=== PATIENT | male | born 1980 | race Caucasian/White ===

== ENCOUNTER 2018-10-05 09:10 | Inpatient (IN) | payer OTHER ==
[~2018-10-05] VITALS: Ht 193 cm; Wt 86.4 kg
--- NOTE | ~2018-10-05 | EKG ---
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
[2018-10-05 10:50] VITALS: BP 128/80
--- NOTE | 2018-10-05 10:50 | NUR ---
Time: 1049 A 38 year old MALE admitted to under services of NIMA DELUNA DO. Pt. arrived via ambulatory from [place]. Chief complaint: OPIATE WITHDRAWAL. SWETHA MULLINS
--- NOTE | 2018-10-05 11:20 | NUR ---
ALBERT ON FLOOR TO SEE PATIENT, INFORMED THAT PATIENT TAKES NO PRESCRIPTIONS MEDS.
[2018-10-05 12:19] LABS: BASO # 0.1 10*3/uL (0.0-0.1); BASO % 0.7 % (0.0-1.0); EOS # 0.4 10*3/uL (0.0-0.4); EOS % 5.8 % (1.0-4.0); HEMATOCRIT 45.4 % (42.0-52.0); HEMOGLOBIN 15.1 g/dl (14.0-18.0); LYMPH # 2.6 10*3/uL (1.3-4.4); LYMPH % 36.9 % (27.0-41.0); MEAN CELL VOLUME 92.3 fl (80.0-94.0); MEAN CORPUSCULAR HGB 30.7 pg (27.0-31.0); MEAN CORPUSCULAR HGB CONC 33.3 g/dl (33.0-37.0); MEAN PLATELET VOLUME 9.8 fl (9.6-12.3); MONO # 0.6 10*3/uL (0.1-1.0); MONO % 8.5 % (3.0-9.0); NEUT # 3.4 10*3/uL (2.3-7.9); NEUT % 47.8 % (47.0-73.0); PLATELET COUNT AUTOMATED 188 10*3/uL (130-400); RED BLOOD COUNT 4.92 10*6/uL (4.50-5.90); RED CELL DISTRI WIDTH 11.7 % (0-14.5); WHITE BLOOD COUNT 7.1 10*3/uL (4.8-10.8)
--- NOTE | 2018-10-05 12:34 | NUR ---
PATIENT MEETS [facility], CINA=15. PATIENT IS INTERESTED IN FOLLOWING UP WITH SELF HELP MEETINGS AND OUTPATIENT COUNSELING WITH [facility]. [facility] WILL SCHEDULE THE PATIENT'S INITIAL APPOINTMENT. HILDA DAVILA MS MEN'S GARMENT FITTER
[2018-10-05 12:42] LABS: ALBUMIN 3.3 gm/dl (3.1-4.5); ALKALINE PHOSPHATASE 44 U/L (45-117); BUN 18 mg/dl (7-24); CHLORIDE 106 mmol/L (98-107); CREATININE 0.79 mg/dL (0.70-1.30); SGOT/AST 16 IU/L (3-35); SGPT/ALT 27 U/L (12-78); SODIUM 138 mmol/L (136-145); TOTAL PROTEIN 6.5 gm/dL (6.4-8.2)
[2018-10-05 12:44] LABS: INTERNATIONAL NORM RATIO 0.9 (2.0-3.5)
[2018-10-05 12:47] LABS: ETHYL ALCOHOL < 3.0 mg/dl (<3)
--- NOTE | 2018-10-05 13:20 | NUR ---
URINE SPECIMEN SENT TO LAB
[2018-10-05 13:27] LABS: BILIRUBIN NEGATIVE (NEGATIVE); BLOOD NEGATIVE (NEGATIVE); CLARITY CLEAR (CLEAR); COLOR YELLOW (YELLOW); GLUCOSE NEGATIVE (NEGATIVE); KETONE NEGATIVE (NEGATIVE); LEUKO ESTERASE NEGATIVE (NEGATIVE); NITRITE NEGATIVE (NEGATIVE); UROBILINOGEN 0.2 E.U./dl (0.2-1.0)
[2018-10-05 13:35] LABS: EPITHELIAL CELLS 0-2; RBC 0-2 rbc/hpf (0-2)
[2018-10-05 13:39] LABS: URINE AMPHETAMINES > 1000 (1000ng/ml); URINE BARBITURATES < 200 (200ng/ml); URINE BENZODIAZEPINES < 200 (200ng/ml); URINE CANNABINOIDS (THC) > 50 (50ng/ml); URINE COCAINE < 300 (300ng/ml); URINE METHADONE < 300 (300ng/ml); URINE OPIATES > 300 (300ng/ml)
[2018-10-05 13:40] LABS: URINE PHENCYCLIDINE < 25 (25ng/ml)
--- NOTE | 2018-10-05 14:29 | NUR ---
PATIENT MEDICATED FOR WITH DRAWAL SYMPTOM OF ABDOMINAL DISCOMFORT, NAUSEA, BAODY ACHES, AND ANXIETY, SEE EMAR. WILL MONITOR
[2018-10-05 16:00] VITALS: BP 118/62
--- NOTE | 2018-10-05 19:26 | NUR ---
PATIENT MEDICATED WITH MOTRIN FOR COMPLAINTS OF ABDOMINAL AND HEAD PAIN. WILL CONTINUE TO MONITOR. CALL LIGHT IN REACH.
--- NOTE | 2018-10-05 19:55 | NUR ---
MEDICATED WITH VISTARIL FOR ANXIETY AND ZOFRAN FOR ABDOMINAL UPSET. WILL CONTINUE TO MONITOR.
[2018-10-05 20:00] VITALS: BP 116/62
[2018-10-06] VITALS: BP 111/62
--- NOTE | 2018-10-06 07:00 | NUR ---
PT SLEEPING. RESPS REG/EASY WITH NO DISTRESS. BEDSIDE REPORT RECEIVED FROM JUDY LE. BED LOW
[2018-10-06 08:00] VITALS: BP 90/58
--- NOTE | 2018-10-06 10:30 | NUR ---
PT AWAKE. ROUTINE MEDICATIONS WELL TOLERATED. NO PT QUESTIONS/CONCERNS AT THIS TIME. BED LOW. CALL MYERS IN REACH
[2018-10-06 12:00] VITALS: BP 98/50
[2018-10-06 16:00] VITALS: BP 114/68
--- NOTE | 2018-10-06 16:03 | NUR ---
PATIENT REPORTED THAT HE HAS A PRESCHEDULED APPOINTMENT WITH [facility] FOR HIS AFTERCARE PLAN. [facility] STAFF WILL FOLLOW UP WITH PATIENT CONCERNING HIS AFTERCARE PLAN. LONNIE PECK B.A. NEWS AGENT
--- NOTE | 2018-10-06 19:10 | NUR ---
Patient displaying withdrawal symptoms, including: irritability, anxiousness, restlessness and agitation. PRN medications provided, SEE EMAR. Will continue to monitor medication effectiveness.
[2018-10-06 20:00] VITALS: BP 115/70
--- NOTE | 2018-10-06 20:12 | NUR ---
24 HR chart check completed.
--- NOTE | 2018-10-06 20:30 | NUR ---
Patient resting. Responding to scheduled medications with fewer complaints of pain and anxiety.
--- NOTE | 2018-10-06 21:30 | NUR ---
Patient displaying withdrawal symptoms, including: irritability, anxiousness, restlessness and agitation. Scheduled/PRN medications provided, SEE EMAR. Will continue to monitor medication effectiveness.
--- NOTE | 2018-10-06 23:00 | NUR ---
Patient resting. Responding to scheduled medications with fewer complaints of pain and anxiety.
[2018-10-07] VITALS: BP 112/63
--- NOTE | 2018-10-07 00:20 | NUR ---
SLEEPING WITH NO ACUTE DISTRESS NOTED. RESPIRATIONS EASY. VSS. CALL LIGHT WITHIN REACH
--- NOTE | 2018-10-07 05:20 | NUR ---
AWAKENED FOR AM SUBUTEX. MEDS TAKEN WITHOUT DIFFICULTY.
--- NOTE | 2018-10-07 07:00 | NUR ---
pt sleeping . resperations reg easy. report recieved from Sharita LE.
[2018-10-07 08:00] VITALS: BP 110/70
--- NOTE | 2018-10-07 10:00 | NUR ---
PT COMPLAINED OF ANXIETY GAVE PO VISTARIL
--- NOTE | 2018-10-07 10:55 | NUR ---
Patient resting. Responding to scheduled medications with fewer complaints of anxiety.
[2018-10-07 12:00] VITALS: BP 114/81
--- NOTE | 2018-10-07 14:47 | NUR ---
PATIENT WILL FOLLOW UP WITH [facility] COUNSELING ONCE DISCHARGED. HILDA DAVILA MS BOOKING PRIZER
[2018-10-07 16:00] VITALS: BP 101/58
--- NOTE | 2018-10-07 17:30 | NUR ---
PT AWAKE. ROUTINE MEDS WELL TOLERATED. PT C/O RIGHT UPPER TOOTH PAIN RATED 6/10. ADMINISTERED PO IBUPROHEN. WILL MONITOR FOR EFFECTIVENESS.
--- NOTE | 2018-10-07 18:20 | NUR ---
Patient resting quietly with no c/o discomfort. Respirations easy and regular. Vital signs stable. No overt distress. REMY CELIS
[2018-10-07 20:00] VITALS: BP 126/75
[2018-10-08] VITALS: BP 120/72
[2018-10-08 06:29] LABS: BASO # 0.1 10*3/uL (0.0-0.1); BASO % 0.9 % (0.0-1.0); EOS # 0.5 10*3/uL (0.0-0.4); EOS % 7.2 % (1.0-4.0); HEMATOCRIT 47.8 % (42.0-52.0); HEMOGLOBIN 15.8 g/dl (14.0-18.0); LYMPH # 3.1 10*3/uL (1.3-4.4); LYMPH % 44.3 % (27.0-41.0); MEAN CELL VOLUME 93.2 fl (80.0-94.0); MEAN CORPUSCULAR HGB 30.8 pg (27.0-31.0); MEAN CORPUSCULAR HGB CONC 33.1 g/dl (33.0-37.0); MEAN PLATELET VOLUME 10.1 fl (9.6-12.3); MONO # 0.6 10*3/uL (0.1-1.0); MONO % 8.7 % (3.0-9.0); NEUT # 2.7 10*3/uL (2.3-7.9); NEUT % 38.8 % (47.0-73.0); PLATELET COUNT AUTOMATED 188 10*3/uL (130-400); RED BLOOD COUNT 5.13 10*6/uL (4.50-5.90); RED CELL DISTRI WIDTH 11.7 % (0-14.5); WHITE BLOOD COUNT 6.9 10*3/uL (4.8-10.8)
[2018-10-08 08:00] VITALS: BP 110/58
--- NOTE | 2018-10-08 08:06 | NUR ---
PT SLEEPING. AROUSES EASILY. NO VOICED COMPLAINTS. WILL CONTINUE TO MONITOR. CALL LIGHT WITHIN REACH. SEE SHIFT ASSESSMENT.
--- NOTE | 2018-10-08 10:42 | NUR ---
PT GIVEN PO VISTARIL, MOTRIN AND ROBAXIN PER PRN ORDER FOR C/O ANXIETY AND MUSCLE ACHES/DISCOMFORT. WILL MONITOR EFFECTIVENESS.
--- NOTE | 2018-10-08 12:04 | NUR ---
Discharge instructions reviewed with patient/family. Patient receptive and verbalizes understanding. Follow-up care arranged. Written instructions given to patient/family. DONNIE COX.
== END 2018-10-08 12:04 | disposition home or self-care (01) | DRG 897 ==
LOC: 5E 09:10
PROVIDERS: Registered Nurse; ADMIT Internal Medicine
DX: F11.23 Opioid dependence with withdrawal (principal); F19.10 Other psychoactive substance abuse, uncomplicated; Z72.0 Tobacco use; Z82.49 Family history of ischemic heart disease and other diseases of the circulatory system; Z71.6 Tobacco abuse counseling